=== PATIENT | male | born 1965 | race Caucasian/White ===

== ENCOUNTER 2017-09-26 21:29 | Emergency (ER) | payer BC ==
[~2017-09-26] VITALS: Ht 175.3 cm; Wt 83.0 kg
[2017-09-27 00:39] VITALS: BP 151/98
== END 2017-09-27 00:39 | disposition home or self-care (01) ==
LOC: ED 21:29
DX: S61.412A Laceration without foreign body of left hand, initial encounter (principal); I10 Essential (primary) hypertension; Z88.5 Allergy status to narcotic agent; X50.9XXA Other and unspecified overexertion or strenuous movements or postures, initial encounter; Y93.89 Activity, other specified; Y92.89 Other specified places as the place of occurrence of the external cause; Y99.8 Other external cause status
CPT/HCPCS: 90715